=== PATIENT | male | born 1945 | race Caucasian/White ===

== ENCOUNTER 2016-11-29 09:44 | Day surgery (SDC) | payer OTHER ==
[2016-11-24 12:46] VITALS: BMI 35.9
[2016-11-29] MEDS ORDERED: PROPOFOL 20 ML ONE ×2 (09:54)
[2016-11-29] MEDS ORDERED: ePHEDrine SULFATE 50 MG/1 ML AMPULE ONE (10:28)
[2016-11-29 10:44] VITALS: TEMP 98.2
[2016-11-29 11:23] VITALS: BP 126/68; PULSE 66
--- NOTE | 2016-11-30 15:56 | PATH ---
Surgical Pathology Report Patient Name: JOAN CAMERON [facility]. Rec. #: [id number] /Age/Gender: 1945 (Age: 71) / M Account: [id number] Location: [facility]-ENDOSCOPY Taken: 11/29/2016 Received: 11/29/2016 Reported: 11/30/2016 Physicians: Denver Enciso M.D. Specimen(s) Received BX CECUM Clinical History History of polyps Final Diagnosis CECUM, BIOPSY: HYPERPLASTIC POLYP. Electronically Signed Yareli Pantoja M.D. Gross Description Received in formalin, labeled "cecum" is a [place], irregular portion of soft tissue measuring 0.2 cm. in greatest dimension. The specimen is submitted in toto in one cassette. /11/29/201611/29/2016
== END 2016-11-29 11:25 | disposition home or self-care (01) ==
LOC: FASU-ENDO 09:44
PROVIDERS: ATTEND Internal Medicine Gastroenterology
PROC: 0DBH8ZX Excision of Cecum, Via Natural or Artificial Opening Endoscopic, Diagnostic (ICD-10-PCS; principal; 2016-11-29 10:12)
DX: Z86.010 Personal history of colon polyps (principal); K57.30 Diverticulosis of large intestine without perforation or abscess without bleeding; K63.5 Polyp of colon
CPT/HCPCS: 88305-TC